=== PATIENT | female | born 1945 | race Two or more races ===

== ENCOUNTER 2025-03-04 09:13 | Day surgery (SDC) | payer OTHER, MEDICAID ==
[2025-03-02 12:29] LABS: Hematocrit 38.3 % (36.0-46.0); Hemoglobin 13.1 g/dL (12.2-16.2); Mean Corpuscular Hemoglobin 32.8 pg (28.0-32.0); Mean Corpuscular Volume 96.0 fL (80.0-100.0); Nucleated Red Blood Cells % 0.1 %
[2025-03-02 12:47] LABS: INR 0.99 (0.9-1.15); Partial Thromboplastin Time 30.3 SEC (24.5-34.5); Prothrombin Time 10.5 sec (9.3-11.8)
[2025-03-02 12:49] LABS: Urine Protein, UAD TRACE (Negative)
[2025-03-02 13:02] LABS: Albumin 4.3 g/dL (3.2-4.8); Alkaline Phosphatase 97 U/L (46-116); Anion Gap 6 (5-15); BUN/Creatinine Ratio 27.4 (10.0-20.0); Bilirubin, Total 0.3 mg/dL (0.2-1.0); Blood Urea Nitrogen 20 mg/dL (9-23); Calcium 9.3 mg/dL (8.7-10.4); Chloride 103 mmol/L (98-107); Glucose 101 mg/dL (74-106); Potassium 4.3 mmol/L (3.5-5.1); Sodium 141 mmol/L (136-145); Total Protein 7.3 g/dL (5.7-8.2)
[2025-03-02 13:16] LABS: Alanine Aminotransferase 70 U/L (7-40); Carbon Dioxide 32 mmol/L (20-31)
[~2025-03-04] VITALS: Ht 149.9 cm; Wt 68.9 kg
[~2025-03-04 09:13] MED LIST: ALEN70TA74 PO; AZAT50TA35 PO; DAPA1TAB4 PO; DULO20CA PO; ENAL10TA40 PO; EVOL140I SC; METH-1214 PO; OMEP-448 PO; PERCOT PO; PRED20TA2 PO; PREG100C PO; SEMA2INJ3 SC
[2025-03-04] MEDS ORDERED: SODIUM CHLORIDE LOCK 10 ML ONE (09:53)
[2025-03-04] MEDS ORDERED: MIDAZOLAM HCL 2MG/2ML 2ml VIAL (1mg/ml) ONE (09:53)
[2025-03-04] MEDS ORDERED: ONDANSETRON HCL 4 MG/2 ML VIAL ONE (09:53)
[2025-03-04] MEDS ORDERED: fentaNYL CITRATE 100 MCG/2 ML VL ONE (09:53)
[2025-03-04] MEDS ORDERED: PROPOFOL 10 MG/ML 20 ML IV ONE (09:53)
--- NOTE | 2025-03-04 10:03 | DVHHP2 ---
GI H&P Pre-Op Assessment Date: 03/04/25 Chief complaint: colon cancer screening HPI: per clinic note Past medical history: per clinic note Past surgical history: per clinic note Family history: per clinic note Physical exam: General: NAD, AAOX3 HEENT: PERRL, no scleral icterus, normal hearing, gums without lesions or bleeding, oropharynx clear without erythema or exudate. Neck: Supple without enlargement of the thyroid, or lymphadenopathy. Chest: Normal size and shape, no tenderness, lung mandel clear to auscultation and percussion, nonlabored breathing. Heart: RRR, no murmur Abdomen: non-distended, no tenderness to palpation, +BS, no hepatosplenomegaly Extremities: no edema Neurological: CN II-XII intact, sensation intact in all extremities, 5+ strength in all extremities Skin: No rashes, No jaundice Assessment: - colon cancer screening Plan: - Colonoscopy - Risks (bleeding, infection, perforation, reaction to sedation medications and cardiopulmonary arrest) and benefit of the procedure were explained to patient. Patient agrees to undergo the procedure. CAMERON TABARES MD Mar 04, 2025 10:03
[2025-03-04 10:20] VITALS: PULSE 103; RESP 12; TEMP 97.7
--- NOTE | 2025-03-04 10:21 | DVHOP2 ---
Operative Report DATE OF OPERATION: 03/04/25 PROCEDURE: Colonoscopy. PREOPERATIVE INDICATION: The patient is a 79 -year-old female undergoing colonoscopy for cancer screening. POSTOPERATIVE DIAGNOSES: 1. Colonoscope only reach distal sigmoid colon due to solid stool. PROCEDURE PERFORMED BY: Dragan Blakely M.D. SCOPE: Olympus videocolonoscope. ASA CLASS: 3 PREOPERATIVE MEDICATIONS: MAC with Dr Hardwick PROCEDURE IN DETAIL: After obtaining an informed consent, the patient was placed on left lateral decubitus position. She was then sedated with the above medications. A rectal examination was performed that was normal. The colonoscope was then passed through the anus into the rectosigmoid and distal sigmoid colon. The colonoscope could not be advanced further due to solid stool.. The colonoscope was then withdrawn. The patient tolerated the procedure well without difficulty. WITHDRAWAL TIME: N/A QUALITY OF THE PREP: Wilber Bowel Prep score: 0 COMPLICATIONS : None SPECIMENS: None DISPOSITION: D/C to home PLAN: 1. Patient will need repeat colonoscopy with two days of prep. DRAGAN BLAKELY MD Mar 04, 2025 10:21
--- NOTE | 2025-03-04 10:22 | DVHDS2 ---
Physician Discharge Progress N Final Diagnosis: Incomplete colonoscopy due to poor prep. Operations or Procedures: Operations or Procedures Incomplete colonoscopy Condition on Discharge: Good Disposition: Home Discharge Instructions: Diet: Regular Activity: No Restrictions, As Tolerated Medications: Resume previous home medications Follow Up Care: Discharge Statement: "Patient was advised to return to the ER or call 911 if any headaches, dizziness, shortness of breath, chest pain, abdominal pain, bleeding, fevers, or worsening of medical condition. Patient was counseled about treatment plan, medications, possible side effects, patientverbalized understanding. All questions were answered to the best of my ability. This discharge took greater then 30 minutes in planning, reviewing documentation, counseling the patient, and discussing with other team members." CAMERON TABARES MD Mar 04, 2025 10:22
[2025-03-04 10:50] VITALS: BP 147/39; PULSE 93; RESP 12; O2SAT 97
== END 2025-03-04 11:10 | disposition home or self-care (01) ==
LOC: GI 09:13
PROVIDERS: ATTEND Internal Medicine Gastroenterology
DX: K59.00 Constipation, unspecified (principal); K63.89 Other specified diseases of intestine; I10 Essential (primary) hypertension; E11.40 Type 2 diabetes mellitus with diabetic neuropathy, unspecified; M06.9 Rheumatoid arthritis, unspecified; M19.90 Unspecified osteoarthritis, unspecified site; G95.19 Other vascular myelopathies; E66.9 Obesity, unspecified; Z68.30 Body mass index [BMI] 30.0-30.9, adult; Z79.899 Other long term (current) drug therapy; Z90.49 Acquired absence of other specified parts of digestive tract; Z90.710 Acquired absence of both cervix and uterus; Z98.42 Cataract extraction status, left eye; Z98.41 Cataract extraction status, right eye; Z98.890 Other specified postprocedural states
CPT/HCPCS: 36415; 45378; 80053; 81001; 82962; 85025; 85610; 85730; J2250; J2405; J2704; J3010; J7030